=== PATIENT | male | born 1955 | race Caucasian/White ===

== ENCOUNTER 2018-12-09 13:48 | Observation (INO) | payer OTHER ==
[~2018-12-09] VITALS: Ht 167.6 cm; Wt 92.1 kg
[~2018-12-09 13:48] MED LIST: Antivert25 MG PO; Aspirin EC81 MG PO; CARI350; CLOP75 PO; HYDMOR4 PO; IBUP400; LISI5 PO; META800 PO; METO25; METO25ER PO; NAPR500 PO; SIMV40 PO
[2018-12-09 14:35] LABS: BASOPHILS ABSOLUTE AUTO 0.03 K/mm3 (0.00-0.23); BASOPHILS PERCENT AUTO 0 % (0-2); EOSINOPHILS ABSOLUTE AUTO 0.06 K/mm3 (0.00-0.68); EOSINOPHILS PERCENT AUTO 1 % (0-6); Hematocrit 45.9 % (37.0-53.0); Hemoglobin 15.3 g/dL (13.5-17.5); IMMATURE GRAN ABSOLUTE AUTO 0.03 K/mm3 (0.00-0.10); IMMATURE GRAN PERCENT AUTO 0 % (0-1); LYMPHOCYTES ABSOLUTE AUTO 0.75 K/mm3 (0.84-5.20); LYMPHOCYTES PERCENT AUTO 6 % (21-46); MONOCYTES ABSOLUTE AUTO 0.79 K/mm3 (0.16-1.47); MONOCYTES PERCENT AUTO 7 % (4-13); Mean Corpuscular HGB 31.5 pg (26.0-34.0); Mean Corpuscular HGB Conc 33.3 g/dL (31.5-36.5); Mean Corpuscular Volume 94 fL (80-100); Mean Platelet Volume 9.4 fL (9.1-12.4); NEUTROPHILS ABSOLUTE AUTO 10.37 K/mm3 (1.96-9.15); NEUTROPHILS PERCENT AUTO 86 % (41-73); Platelet Count 188 K/mm3 (150-400); RDW Coefficient Variation 13.2 % (11.7-14.2); RDW Standard Deviation 46.1 fL (35.1-46.3); Red Blood Cell Count 4.86 M/mm3 (4.30-5.90); White Blood Cell Count 12.03 K/mm3 (4.00-11.30)
[2018-12-09 15:02] LABS: Alanine Aminotransfer (ALT/SGP 30 U/L (12-78); Albumin, Blood 4.2 g/dL (3.4-5.0); Albumin/Globulin Ratio 1.2 (0.8-1.8); Alk Phos 92 U/L (50-136); Anion Gap 5 mmol/L (6-16); Aspartate Aminotrans (AST/SGOT 27 U/L (12-37); Bilirubin, Total 1.1 mg/dL (0.1-1.0); Blood Urea Nitrogen 12 mg/dL (8-24); Bun/Creatinine Ratio 15.7 (12.0-20.0); CO2, Blood 27 mmol/L (21-32); Calcium, Blood 9.3 mg/dL (8.5-10.1); Chloride, Blood 104 mmol/L (98-108); Creatinine, Blood 0.76 mg/dL (0.60-1.20); Globulin, Blood 3.5 g/dL (2.2-4.0); Glomerular Filtration Rate >60 (60-); Glucose, Blood 110 mg/dL (70-99); Potassium, Blood 4.2 mmol/L (3.5-5.5); Sodium, Blood 136 mmol/L (136-145); Total Protein, Blood 7.7 g/dL (6.4-8.2); Troponin I <0.015 ng/mL (0.000-0.040)
--- NOTE | 2018-12-09 18:03 | NUR ---
PATIENT ADMITTED FROM ER AT 1700. HE IS ALERT AND ORIENTED AND ABLE TO EXPRESS ANY NEEDS. NO SKIN ISSUES NOTED. REPORTS PAIN TO STERNUM AREA WITH INHALATION. LUNG SOUNGS CLEAR NO NEURO ISSUES NOTED. [place] AND NO AIDES AVAILABLE. TROPS HAVE BEEN NEGATIVE.
--- NOTE | 2018-12-10 04:47 | NUR ---
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 PLEASANT AND COOPERATIVE. SERIAL TROPONINS CONTINUE TO BE NEGATIVE. FIRST PART OF SHIFT PT REPORTED MID STERNAL DISCOMFORT SIMILAR TO WHEN HE FIRST CAME INTO THE ER. PT DENIES SOB, DIAPHORESIS, OR RADIATING OF THE PAIN TO THE SHOULDERS/ARMS. PT REPORTS THAT THE PAIN INCREASES WITH DEEP BREATHING. PT HAD NO PAIN MED ORDERS AT THAT TIME. SPOKE WITH [facility] CLAR[facility] AND RECIEVED ORDERS FOR IV HYDRALAZINE PRN. AFTER 50 MCG HYDRALAZINE PT REPORTS NO PAIN THIS AM. [employer] REPORTS NSR IN 60-70'S, NO CHANGES THROUGH THE NIGHT. PT TO HAVE ECHO AND ABD US LATER TODAY. WILL CONTINUE TO MONITOR.
--- NOTE | 2018-12-10 08:47 | NUR ---
Echocardiogram completed.
== END 2018-12-10 12:55 | disposition home or self-care (01) ==
LOC: ER 13:48 → MEDS 13:49 → ENPENDDIS 12-10 11:51 → MEDS 12-10 12:55
PROVIDERS: Emergency Medicine; ADMIT Internal Medicine
DX: R07.89 Other chest pain (principal); I25.10 Atherosclerotic heart disease of native coronary artery without angina pectoris; I73.9 Peripheral vascular disease, unspecified; I10 Essential (primary) hypertension; E78.5 Hyperlipidemia, unspecified; Z95.5 Presence of coronary angioplasty implant and graft; Z87.891 Personal history of nicotine dependence; Z88.8 Allergy status to other drugs, medicaments and biological substances; Z88.1 Allergy status to other antibiotic agents; Z79.899 Other long term (current) drug therapy; Z79.01 Long term (current) use of anticoagulants; Z79.82 Long term (current) use of aspirin
CPT/HCPCS: 36415; 71046; 71260; 76705; 80053; 83690; 84484; 85025; 85379; 93005; 93010; 93306; 96374; 96375; 96376; 99285-25; A9270; G0378; J2405; J3010; Q9967

== ENCOUNTER 2019-06-14 06:55 | Day surgery (SDC) | payer OTHER ==
[~2019-06-14] VITALS: Ht 167.6 cm; Wt 92.0 kg
[~2019-06-14 06:55] MED LIST changes: +Isosorbide Mono30 MG PO; +OMEP20ER PO
--- NOTE | 2019-06-14 11:00 | NUR ---
10CC AIR REMOVED FROM R WRIST TR BAND. -BLEEDING OR SWELLING. PT UP TO BATHROOM /C SBA. TOLERATED WELL.
--- NOTE | 2019-06-14 11:30 | NUR ---
Pt up ambulative to brp voided, assisted in dressing pt. Pt preparing for discharge.
--- NOTE | 2019-06-14 11:52 | NUR ---
R WRIST TR BAND REMOVED. -BLEEDING OR SWELLING. PUNCTURE AREA CLEANED /C NS AND CLOTH DOT DRSG PLACED. R WRIST SPLINT REAPPLIED. PT VERBALIZED UNDERSTANDING OF WRITTEN AND VERBAL D/C INST. IV REMOVED. PT TAKEN OUT OF THE HRT CENTER VIA W/C.
== END 2019-06-14 13:11 | disposition home or self-care (01) ==
LOC: MHTC 06:55
DX: I25.119 Atherosclerotic heart disease of native coronary artery with unspecified angina pectoris (principal); I35.0 Nonrheumatic aortic (valve) stenosis; I10 Essential (primary) hypertension; E78.00 Pure hypercholesterolemia, unspecified; I70.202 Unspecified atherosclerosis of native arteries of extremities, left leg; Z87.891 Personal history of nicotine dependence; Z95.5 Presence of coronary angioplasty implant and graft; Z95.820 Peripheral vascular angioplasty status with implants and grafts; Z88.1 Allergy status to other antibiotic agents; Z88.8 Allergy status to other drugs, medicaments and biological substances; Z79.82 Long term (current) use of aspirin; Z79.02 Long term (current) use of antithrombotics/antiplatelets; Z79.899 Other long term (current) drug therapy
CPT/HCPCS: 76937; 85347; 93005; 93010; 93454; 99152; C1769; C1894; J1644; J2250; J3010; J7030; J7040; Q9967

== ENCOUNTER 2022-07-11 05:45 | Inpatient (IN) | payer OTHER ==
[2022-07-11] VITALS (15 sets, daily range): BP systolic 113–161; BP diastolic 67–90
[~2022-07-11] VITALS: Ht 162.6 cm; Wt 101.1 kg
[~2022-07-11 05:45] MED LIST changes: +ATOR40TA PO; +METAMUCIL PO
--- NOTE | 2022-07-11 07:03 | NUR ---
History, Chart, Medications and Allergies reviewed before start of procedure. Lungs clear T/O to Auscultation. Patient confirms NPO status and agrees with scheduled surgery. Pre-Op teaching done. Pt verbalizes understanding. Patient reports completing Chlorhexadine shower X2 prior to admission to hospital. PT REPORTS HAVING SNEEZING AND CONGESTION SINCE MONDAY. DENIES COUGHING OR FEVER. REPORTS CLEAR NASAL DRAINAGE. DENIES SOB. DR. BIGGS NOTIFIED AND DISCUSSES WITH PT. PLAN TO PROCEED WITH SURGERY.
--- NOTE | 2022-07-11 07:33 | NUR ---
PT PARTIAL AND GLASSES IN HIS BELONGINGS BAG. R SHOULDER BLOCK COMPLETED BY DR. BIGGS AT BEDSIDE WITH ASSISTANCE OF MAXIMILIANO NIX
--- NOTE | 2022-07-11 12:55 | NUR ---
ARRIVAL TO UNIT PT TRANSFERRED TO UNIT FROM PACU VIA HOSPITAL BED. S/P R TSA, POD 0. PAIN 3/10, PLAN IS TO MEDICATE PER EMAR NERVE BLOCK WEARS OFF. PT SAT 94-97% ON 2L VIA NC, PLAN IS TO TITRATE BACK TO BASELINE OF ROOM AIR. ABLE TO TOLERATE PO INTAKE, NO REPORTS OF N/V. AQUACEL DRESSING IS C/D/I, BRUISING NOTED. PT ABLE TO WIGGLE FINGERS, BRISK CAP REFILL. FLUIDS INFUSING PER EMAR. SEE ASSESSMENT FOR MORE INFO. CORRECTLY WEARING SHOULDER IMMOBILIZER. COOLING DEVICE IN PLACE. AT BEDSIDE
--- NOTE | 2022-07-11 18:08 | NUR ---
SHIFT SUMMARY S/P R TSA, POD 0. TOLERATING PO INTAKE, NO REPORT OF N/V. PAIN REMAINED TOLERABLE THROUGHOUT SHIFT W/ ORDERED MEDICATIONS & NERVE BLOCK. WORKED W/ PT, ABLE TO AMBULATE W/ SBA FWW, CURRENTLY UP IN CHAIR. RMVD ISLAS CATHETER AT APPROX 1615, AWAITING POST-ISLAS VOID. VSS, ON ROOM AIR. CURRENTLY SALINE LOCKED. CORRECTLY WEARING SHOULDER IMMOBILIZER & COOLING DEVICE. SCDS & UBALDO HOSE IN PLACE. NO NEEDS AT THIS TIME. WILL REPORT TO ONCOMING RN.
[2022-07-12 04:02] VITALS: BP 123/73
[2022-07-12 04:16] LABS: BASOPHILS ABSOLUTE AUTO 0.02 K/mm3 (0.00-0.23); BASOPHILS PERCENT AUTO 0 % (0-2); EOSINOPHILS PERCENT AUTO 0 % (0-6); Hemoglobin 11.8 g/dL (13.5-17.5); IMMATURE GRAN ABSOLUTE AUTO 0.05 K/mm3 (0.00-0.10); IMMATURE GRAN PERCENT AUTO 0 % (0-1); LYMPHOCYTES ABSOLUTE AUTO 0.92 K/mm3 (0.84-5.20); LYMPHOCYTES PERCENT AUTO 7 % (21-46); MONOCYTES PERCENT AUTO 9 % (4-13); Mean Corpuscular HGB 30.8 pg (26.0-34.0); Mean Corpuscular HGB Conc 33.7 g/dL (31.5-36.5); Mean Corpuscular Volume 91 fL (80-100); Mean Platelet Volume 9.1 fL (9.1-12.4); NEUTROPHILS ABSOLUTE AUTO 11.85 K/mm3 (1.96-9.15); NEUTROPHILS PERCENT AUTO 84 % (41-73); Platelet Count 191 K/mm3 (150-400); RDW Coefficient Variation 13.7 % (11.7-14.2); RDW Standard Deviation 45.9 fL (35.1-46.3); Red Blood Cell Count 3.83 M/mm3 (4.30-5.90); White Blood Cell Count 14.14 K/mm3 (4.00-11.30)
[2022-07-12 04:38] LABS: Bun/Creatinine Ratio 21.4 (12.0-20.0); Calcium, Blood 8.6 mg/dL (8.5-10.1); Creatinine, Blood 0.84 mg/dL (0.60-1.20); Magnesium, Blood 2.2 mg/dL (1.6-2.4); Potassium, Blood 4.5 mmol/L (3.5-5.5)
--- NOTE | 2022-07-12 06:15 | NUR ---
POD 1 S/P R TSA. PT VSS T/O NIGHT. DRESSING CDI, IMMOBILIZER IN PLACE. PULSE AND CAP REFILL WNL. PT REP FULL SENSATION, DENIED N/T, REP PAIN MINIMAL; MGD W/SCHEDULED TYLENOL/TORADOL W/REP RELIEF. PT SONNY PO, DENIED N/V, IS VOIDING URINE W/O DIFFICULTY. PLAN TO MOBILIZE W/PT AND D/C HOME.
[2022-07-12 07:26] VITALS: BP 105/65
--- NOTE | 2022-07-12 07:35 | NUR ---
MORNING NOTE: S/P R TSA, POD 0. VSS. REPORTS PAIN 3/10, PLAN IS TO MEDICATE PER EMAR. COOLING DEVICE IN PLACE. TOLERATING PO INTAKE. VOIDING W/ NO DIFFICULTY. AQUACEL C/D/I W/ BRUISING NOTED AROUND INCISION SITE. IMMOBILIZER SLING IN PLACE. NERVE BLOCK, REPORTS NO NUMBNESS/TINGLING & ABLE TO WIGGLE FINGERS. UP W/ SBA, CURRENTLY UP IN CHAIR. PT IND W/ ACTS OF CARE. SEE ASSESSMENT FOR MORE INFORMATION. PLAN IS TO WORK W/ THERAPY LATER IN THE MORNING, IS PLANNING ON BEING HERE FOR THERAPY EVAL. NO NEEDS AT THIS TIME, PT EXPRESSING INTEREST IN DC. ORDERED MORNING MEDICATIONS WILL BE GIVEN W/ BREAKFAST.
[2022-07-12] MEDS ORDERED: OXYC5 PO (09:32)
[2022-07-12] MEDS ORDERED: ACET500 PO (09:32)
--- NOTE | 2022-07-12 11:20 | NUR ---
DISCHARGE NOTE S/P R TSA, POD 1. PAIN REMAINED TOLERABLE W/ PRESCRIBED MEDICATION. ABLE TO TOLERATE PO INTAKE, NO N/V. PT/OT EVAL COMPLETED, MET CRITERIA FOR DC. PRESENT DURING THERAPY EVAL. IND IN RM & AMBULATING IN HALLWAY, CALLS PRN FOR ASSIST. AQUACEL DRESSING C/D/I, W/ NO DRAINAGE. CORRECTLY WEARING IMMOBILIZER SLING, DEVICE WORN DURING DC. IV REMOVED PRIOR TO DC. PT & AGREE W/ DC. COOLING DEVICE & AQUACEL DRESSINGS PROVIDED FOR HOME USE. PT TRANSFERRED TO VEHICLE VIA WHEELCHAIR.
== END 2022-07-12 11:29 | disposition home or self-care (01) | DRG 483 ==
LOC: SURS 05:45 → PRE IP 07:30 → SURS 12:31
PROVIDERS: ADMIT Orthopaedic Surgery
PROC: 0RRJ0JZ Replacement of Right Shoulder Joint with Synthetic Substitute, Open Approach (ICD-10-PCS; principal; 2022-07-11 07:30)
DX: M19.011 Primary osteoarthritis, right shoulder (principal); I35.0 Nonrheumatic aortic (valve) stenosis; J45.909 Unspecified asthma, uncomplicated; I25.10 Atherosclerotic heart disease of native coronary artery without angina pectoris; E78.5 Hyperlipidemia, unspecified; I10 Essential (primary) hypertension; G43.909 Migraine, unspecified, not intractable, without status migrainosus; I73.9 Peripheral vascular disease, unspecified; F10.10 Alcohol abuse, uncomplicated; Z98.890 Other specified postprocedural states; I25.2 Old myocardial infarction; Z98.1 Arthrodesis status; Z90.49 Acquired absence of other specified parts of digestive tract; Z87.891 Personal history of nicotine dependence; Z95.5 Presence of coronary angioplasty implant and graft; Z79.51 Long term (current) use of inhaled steroids; Z79.82 Long term (current) use of aspirin; Z79.02 Long term (current) use of antithrombotics/antiplatelets; Z79.899 Other long term (current) drug therapy; Z88.8 Allergy status to other drugs, medicaments and biological substances; Z88.1 Allergy status to other antibiotic agents
CPT/HCPCS: 36415; 73030; 80048; 83735; 85025; 94760; 97110; 97162; 97166; 97530; 97535; A9270; C1776; J0171; J0330; J0690; J0735; J1100; J1200; J1885; J2250; J2405; J2704; J2765; J2795; J3010; J7120

== ENCOUNTER → 2022-12-21 | Outpatient (CLI) | payer OTHER ==
[~2022-12-21] MED LIST changes: +ACET500 PO; +OXYC5 PO
== END | disposition home or self-care (01) ==
LOC: LAB SHORT 11:41 → LAB 11:41
DX: B35.1 Tinea unguium (principal)
CPT/HCPCS: 87220

== ENCOUNTER → 2023-01-11 | Outpatient (CLI) | payer OTHER | LOC: LAB 15:06 → LAB SHORT 15:06 | DX: L72.8 Other follicular cysts of the skin and subcutaneous tissue (principal) | CPT/HCPCS: 88304 ==

== ENCOUNTER 2024-02-08 12:23 | Day surgery (SDC) | payer OTHER ==
[~2024-02-08] VITALS: Ht 165.1 cm; Wt 101.0 kg
[~2024-02-08 12:23] MED LIST changes: +Balanced Salt Epinephrine Irrigation Solution 500 mL IR SCH; +Lidocaine HCl/Pf 1% 5 ML VIAL XX SCH; +Moxifloxacin HCL 0.5 MG/0.1 ML 0.4MLSYR LEFTEYE SCH; +PHENYLEPHRINE\\TROPICAMIDE\\TETRACAINE OPHTHALMIC DILATING SOLN LEFTEYE PRN; +Povidone-Iodine 450 DROP/30 ML Solution LEFTEYE SCH; +Tetracaine HCl/Pf 0.5% Opth Soln 4 ml ONE; +Triamcinolone Inj Susp 40 MG / ML 1ML Vial INJ SCH; +Triamcinolone Inj Susp 40 MG / ML 1ML Vial ONE
[2024-02-08] MEDS ORDERED: ZYRTEC10 M2 PO (13:12)
[2024-02-08] MEDS ORDERED: CETI5 PO (13:12)
[2024-02-08] MEDS ORDERED: Midazolam HCl 1MG / ML 2ML Vial ONE (13:24)
[2024-02-08] MEDS ORDERED: FentaNYL Citrate 50 MCG/ML 2 ML Injection ONE (13:28)
[2024-02-08 14:20] VITALS: BP 128/73
[2024-02-13] MEDS ORDERED: ATOR80 PO (12:35)
[2024-02-13] MEDS ORDERED: ALBU90OI INH (12:37)
== END 2024-02-08 14:13 | disposition home or self-care (01) ==
LOC: ORSCSDS 12:23
PROVIDERS: Ophthalmology
PROC: 08RK3JZ Replacement of Left Lens with Synthetic Substitute, Percutaneous Approach (ICD-10-PCS; principal; 2024-02-08 14:00)
DX: H25.813 Combined forms of age-related cataract, bilateral (principal); I25.10 Atherosclerotic heart disease of native coronary artery without angina pectoris; J44.9 Chronic obstructive pulmonary disease, unspecified; I10 Essential (primary) hypertension; E78.5 Hyperlipidemia, unspecified; I25.2 Old myocardial infarction; Z79.82 Long term (current) use of aspirin; Z79.899 Other long term (current) drug therapy
CPT/HCPCS: J2250; J3010; J3301; V2632

== ENCOUNTER 2024-02-22 12:28 | Day surgery (SDC) | payer OTHER ==
[~2024-02-22] VITALS: Ht 165.1 cm; Wt 101.0 kg
[~2024-02-22 12:28] MED LIST changes: +ALBU90OI INH; +ATOR80 PO; +CETI5 PO; -Moxifloxacin HCL 0.5 MG/0.1 ML 0.4MLSYR LEFTEYE SCH; +Moxifloxacin HCL 0.5 MG/0.1 ML 0.4MLSYR RIGHTEYE SCH; -PHENYLEPHRINE\\TROPICAMIDE\\TETRACAINE OPHTHALMIC DILATING SOLN LEFTEYE PRN; +PHENYLEPHRINE\\TROPICAMIDE\\TETRACAINE OPHTHALMIC DILATING SOLN RIGHTEYE PRN; -Povidone-Iodine 450 DROP/30 ML Solution LEFTEYE SCH; +Povidone-Iodine 450 DROP/30 ML Solution RIGHTEYE SCH; -Tetracaine HCl/Pf 0.5% Opth Soln 4 ml ONE; +ZYRTEC10 M2 PO
[2024-02-22] MEDS ORDERED: DIAZEPAM5 M2 PO (13:23)
[2024-02-22] MEDS ORDERED: Midazolam HCl 1MG / ML 2ML Vial ONE (13:40)
[2024-02-22] MEDS ORDERED: Tetracaine HCl 0.5% Opth Soln 15 ml XX ONE (13:49)
[2024-02-22 14:49] VITALS: BP 138/100
== END 2024-02-22 14:31 | disposition home or self-care (01) ==
LOC: ORSCSDS 12:28
PROVIDERS: Ophthalmology
PROC: 08RJ3JZ Replacement of Right Lens with Synthetic Substitute, Percutaneous Approach (ICD-10-PCS; principal; 2024-02-22 14:00)
DX: H25.811 Combined forms of age-related cataract, right eye (principal); Z96.1 Presence of intraocular lens; I10 Essential (primary) hypertension; I25.10 Atherosclerotic heart disease of native coronary artery without angina pectoris; J44.9 Chronic obstructive pulmonary disease, unspecified; Z79.82 Long term (current) use of aspirin; E66.9 Obesity, unspecified; Z68.37 Body mass index [BMI] 37.0-37.9, adult; Z79.899 Other long term (current) drug therapy
CPT/HCPCS: J2250; J3301; V2632